=== PATIENT | male | born 1975 | race Two or more races ===

== ENCOUNTER 2019-06-13 14:37 | Emergency (ER) | payer OTHER ==
[~2019-06-13] VITALS: Ht 167.6 cm; Wt 68.0 kg
[2019-06-13 14:42] VITALS: BP 118/78
--- NOTE | 2019-06-13 14:50 | NUR ---
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 patient is alert awake x4 ambulatory steady gait, breathing unlabored and even.
[2019-06-13] MEDS ORDERED: Tetanus/Diptheria/Pertussis IM ONE (15:00)
--- NOTE | 2019-06-13 15:19 | NUR ---
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 auto care center manager reports he does not know the name of the crowning hammer operator.
[2019-06-13] MEDS ORDERED: Morgan Lens TOPIC ONE (15:30)
[2019-06-13] MEDS ORDERED: Tetracaine 0.5% Opth 4ml Soln LEFT EYE ONE (15:30)
--- NOTE | 2019-06-13 15:59 | Emergency Room Report ---
History of Present Illness General Chief Complaint: Eye Problems Source: Patient Present Illness HPI 44-year-old male presents to the emergency department complaining of 4 out of 10 severity burning sensation in the right eye after having dish cleaning chemical splashed in his eye while at work. Patient reports some erythema he reports increased hearing he states he is able to see normally. Patient denies contact lens use. Patient denies loss of vision or blurry vision. Denies: Discharge, floaters, flashing lights or scratching sensation. He is not sure when his last tetanus vaccination was. Allergies: Coded Allergies: No Known Allergies (Unverified , 06/13/19) Patient History Past Medical History: see triage record Past Surgical History: none Pertinent Family History: none Reviewed Nursing Documentation: PMH: Agreed; PSxH: Agreed Nursing Documentation-PMH Past Medical History: No Stated History Review of Systems All Other Systems: negative except mentioned in HPI Physical Exam Vital Signs Date Time Temp Pulse Resp B/P (MAP) Pulse Ox O2 Delivery O2 Flow Rate FiO2 06/13/19 14:42 98.1 65 20 118/78 (91) 99 Room Air Sp02 EP Interpretation: reviewed, normal General Appearance: no apparent distress, alert, GCS 15, non-toxic Head: normocephalic, atraumatic Eyes: right eye other - mild increase in lacrimation, and mild conjunctival injection.; bilateral eye normal inspection, bilateral eye PERRL, bilateral eye visual acuity - 20/40 ENT: hearing grossly normal, normal voice Neck: full range of motion Respiratory: chest non-tender, lungs clear, normal breath sounds, speaking full sentences Cardiovascular #1: regular rate, rhythm Genitourinary: normal inspection Musculoskeletal: back normal, gait/station normal, normal range of motion, non- tender Neurologic: alert, oriented x3, responsive, motor strength/tone normal, sensory intact, normal gait, speech normal, grossly normal Psychiatric: judgement/insight normal Skin: no rash Lymphatic: no adenopathy Medical Decision Making PA Attestation Dr. Delgado is my supervising physician whom pt. management has been discussed with. Diagnostic Impression: Primary Impression: Chemical conjunctivitis of right eye ER Course 44-year-old male presents to the emergency department complaining of 4 out of 10 severity burning sensation in the right eye after having dish cleaning chemical splashed in his eye while at work. Patient reports some erythema he reports increased hearing he states he is able to see normally. Patient denies contact lens use. Patient denies loss of vision or blurry vision. Denies: Discharge, floaters, flashing lights or scratching sensation. He is not sure when his last tetanus vaccination was. Ddx considered but are not limited to: corneal abrasion, acute glaucoma, globe rupture, FB, Corneal Ulcer, conjunctivitis. Iridis, orbital cellulitis,keratitis , sinusitis Vital signs: are WNL, pt. is afebrile H&PE are most consistent with: bacterial conjunctivitis, and sinusitis ORDERS: none at this time. ED INTERVENTIONS: -Tdap IM -Adria Lens Irrigation - Pt. reports he has no pain s/p adria lens. DISCHARGE: At this time pt. is stable for d/c to home. Will provide printed patient care instructions, and any necessary prescriptions. Care plan and follow up instructions have been discussed with the patient prior to discharge. Last Vital Signs Date Time Temp Pulse Resp B/P (MAP) Pulse Ox O2 Delivery O2 Flow Rate FiO2 06/13/19 14:42 98.1 65 20 118/78 99 Room Air Status: improved Disposition: HOME, SELF-CARE Condition: Stable Scripts Ofloxacin (OCUFLOX) 5 Ml Drops 1 ML OP TID, #5 ML Prov: Danni Vargas 06/13/19 Referrals: NOT CHOSEN IPA/MD,REFERRING (PCP) Departure Forms: Return to Work Return to Work Date: Jun 15, 2019 Work Restrictions: None Return to Full Activity: Jun 15, 2019 Patient Instructions: Chemical Conjunctivitis Additional Instructions: Take medications as directed. Follow up with a Patient Case Manager in 3 days, even if your symptoms have resolved. --Please review list of primary care clinics, if you do not already have a primary care provider Return sooner to ED if new symptoms occur, or current symptoms become worse. - Please note that this Emergency Department Report was dictated using [employer] taper operator technology software, occasionally this can lead to erroneous entry secondary to interpretation by the dictation equipment. Danni Vargas Jun 13, 2019 15:59
[2019-06-13] MEDS ORDERED: OCUFLOX5 ML OP (16:06)
[2019-06-13 16:50] VITALS: BP 118/78
--- NOTE | 2019-06-13 16:50 | NUR ---
ER DISCHARGE NOTE: Patient is cleared to be discharged per KRISSY MOREL, pt is aox4, on room air, with stable vital signs. pt was given dc and prescription instructions, pt was able to verbalize understanding, pt id band removed without complications. pt is able to ambulate with steady gait. pt took all belongings.
== END 2019-06-13 16:50 | disposition home or self-care (01) ==
LOC: EMR 15:17
DX: H10.211 Acute toxic conjunctivitis, right eye (principal)
CPT/HCPCS: 90471; 90715; 99283